=== PATIENT | male | born 1965 | race Caucasian/White ===

== ENCOUNTER 2017-07-27 08:25 | Emergency (ER) | payer BC ==
[2017-07-27 11:42] LABS: Bilirubin Negative (Negative); Blood, Urine Negative (Negative); Clarity CLEAR (Clear); Glucose, Urine (Dipstick) >=1000 mg/dL (Negative); Leukocyte Negative (Negative); Nitrite Negative (Negative); Protein, Urine (Dipstick) 30 mg/dL (Neg-Trace); Specific Gravity, Urine 1.037 (1.002-1.036); Urobilinogen 0.2 mg/dL (0.2-1.0)
[2017-07-27 11:43] LABS: Bacteria/HPF None Seen HPF (None Seen); Hyaline Casts/LPF 0-3 HYALINE CAST LPF (0-3 Hyaline); Pathc Cast-AUWi Flag 0.27 (0-2.49); RBC/HPF 0-3 HPF (0-3); Squamous Epithelial None Seen HPF (0-3); WBC/HPF 0-3 HPF (0-3)
== END 2017-07-27 11:50 | disposition home or self-care (01) ==
LOC: ERS 08:25
DX: R33.9 Retention of urine, unspecified (principal); E11.9 Type 2 diabetes mellitus without complications; E78.5 Hyperlipidemia, unspecified; I10 Essential (primary) hypertension; F41.9 Anxiety disorder, unspecified; F32.9 Major depressive disorder, single episode, unspecified; Z79.84 Long term (current) use of oral hypoglycemic drugs; Z79.899 Other long term (current) drug therapy
CPT/HCPCS: 51702; 81003; 81015; 87086

== ENCOUNTER 2017-08-10 10:46 | Outpatient (CLI) | payer BC ==
--- NOTE | 2017-08-10 11:59 | ULT ---
BILATERAL RENAL ULTRASOUND; Date: 08/10/17 HISTORY: Frequency of micturition. COMPARISON: None. FINDINGS: Right kidney measures 12.8 x 6.2 x 5.4 cm, without mass, hydronephrosis, or abnormal calcifications. Left kidney measures 12.9 x 6.6 x 6.3 cm, without mass, hydronephrosis, or abnormal calcifications. Both ureteral jets are seen. Pre-void urinary volume is 598 mL. Post-void volume is 328 mL. IMPRESSION: 1. No evidence of obstructive uropathy. 2. Incomplete emptying of the urinary bladder with a post-void residual of 328 mL. POS: [facility]
== END 2017-08-10 10:47 | disposition home or self-care (01) ==
LOC: ULT 10:46
PROVIDERS: ATTEND Urology
DX: R35.0 Frequency of micturition (principal); R39.14 Feeling of incomplete bladder emptying
CPT/HCPCS: 76770

== ENCOUNTER 2017-11-05 12:31 | Outpatient (CLI) | payer BC ==
[2017-11-05 14:45] LABS: Mean Corpuscular HGB CONC 34.5 g/dL (32.0-36.0); Mean Corpuscular Hemoglobin 31.2 pg (27.0-31.0); Mean Corpuscular Volume 90.4 fl (80.0-94.0); Mean Platelet Volume 10.4 fL (7.4-10.4); Platelet Count 163 thou/uL (130-400); RBC Distribution Width 11.5 % (11.5-14.5); Red Blood Cell (RBC) Count 4.81 mill/uL (4.70-6.10); White Blood Cell (WBC) Count 9.3 thou/uL (4.8-10.8)
[2017-11-05 15:18] LABS: Anion Gap 13 mmol/L (10-20); BUN (Urea Nitrogen) 14 mg/dL (8.4-25.7); Calc. Creatinine Clearance 0 mL/min (70-130); Calcium 9.4 mg/dL (7.8-10.44); Carbon Dioxide 24 mmol/L (22-29); Chloride 104 mmol/L (98-107); Estimated GFR-MDRD Greater than 90; Glucose 184 mg/dL (70-105); Potassium 3.7 mmol/L (3.5-5.1); Sodium 137 mmol/L (136-145)
== END 2017-11-05 12:32 | disposition home or self-care (01) ==
LOC: LABBT 12:31
PROVIDERS: ATTEND Urology
DX: Z01.818 Encounter for other preprocedural examination (principal); N40.0 Benign prostatic hyperplasia without lower urinary tract symptoms; Z88.0 Allergy status to penicillin
CPT/HCPCS: 80048; 81001; 84153; 85027

== ENCOUNTER 2017-11-13 09:02 | Day surgery (SDC) | payer BC ==
[2017-11-05 12:51] VITALS: BMI 29.5
[2017-11-13] MEDS ORDERED: Fentanyl 100 MCG/2 ML VIAL ONE (10:34)
[2017-11-13] MEDS ORDERED: Dexamethasone 4 mg/ml Vial ONE (10:42)
[2017-11-13] MEDS ORDERED: cefTRIAXone\\ROCEPHIN 1 GM, Syringe 0.4 ML in Sterile Water 9.6 ML SLOW IVP ONE (11:00)
[2017-11-13] MEDS ORDERED: Furosemide 20 MG/2 ML VIAL ONE (11:17)
[2017-11-13] MEDS ORDERED: B & O ONE (11:48)
--- NOTE | 2017-11-13 15:30 | OP ---
DATE OF PROCEDURE: 11/13/2017 PREOPERATIVE DIAGNOSIS: Benign prostatic hypertrophy. POSTOPERATIVE DIAGNOSIS: Benign prostatic hypertrophy. PROCEDURE: GreenLight laser vaporization of the prostate with enucleation of the middle lobe using 2 20,747 joules. COMPLICATIONS: None. SPECIMENS: Prostate. ESTIMATED BLOOD LOSS: Minimal. DRAINS remaining 20-Maldivian 2-way. ANESTHESIA: General laryngeal mask airway. INDICATIONS: The patient is a 52-year-old male with severe anxiety, who was followed in the office w ith prior concerns for retention and BPH, and ultimately set up for definitive surgical therapy. TECHNIQUE: The patient was brought into the room by Anesthesia, laid on the table in supine position . After receiving a general anesthetic, his legs were placed in the lithotomy position and his perin eum was prepped and draped in sterile fashion. Using a 22.5-Maldivian cystoscope and a 30-degree lens, the urethra was traversed and the bladder inspected. The ureteral orifices were identified and prese rved throughout the case. Power level of 80 was used in the bladder neck and veru and a power level of 180 was used for the mid gland. Initially, the middle lobe was enucleated and taken down and then the lateral lobes separately. The trigone was slightly elevated, so this was also taken down and co ntoured at the end of the case. The lateral lobes just kept replenishing themselves after looking in with each decompression. So a significant amount of vaporization was used on these lateral lobes, b ut when the scope was removed, a good stream was noted. The scope was put back and bladder decompres sed and hemostasis ensured. Final contouring of the bladder neck, widening the lateral lobes to the bladder prince was done with a power level of 80 and then the scope was removed a final time, and a 20 -Maldivian catheter was placed to gravity. The patient tolerated the procedure well and was then awaken ed and transferred to PACU in stable condition.
== END 2017-11-13 14:40 | disposition home or self-care (01) ==
LOC: SDC 09:02
PROVIDERS: ATTEND Urology
PROC: 0V507ZZ Destruction of Prostate, Via Natural or Artificial Opening (ICD-10-PCS; principal; 2017-11-13)
DX: N40.1 Benign prostatic hyperplasia with lower urinary tract symptoms (principal); R33.8 Other retention of urine; R35.0 Frequency of micturition; R39.14 Feeling of incomplete bladder emptying; N30.00 Acute cystitis without hematuria; I10 Essential (primary) hypertension; E78.00 Pure hypercholesterolemia, unspecified; E11.9 Type 2 diabetes mellitus without complications; F41.9 Anxiety disorder, unspecified; F32.9 Major depressive disorder, single episode, unspecified; Z88.0 Allergy status to penicillin; Z88.8 Allergy status to other drugs, medicaments and biological substances; Z79.899 Other long term (current) drug therapy
CPT/HCPCS: 88305; A4216; J0696; J1100; J1940; J3010